=== PATIENT | male | born 1965 | race Caucasian/White ===

== ENCOUNTER 2016-12-30 08:37 | Emergency (ER) | payer BC ==
[2016-12-30] MEDS ORDERED: ONDANSETRON HCL IV 4 MG/2 ML VIAL IV ONE (08:47)
[2016-12-30] MEDS ORDERED: HYDROMORPHONE HCL 1 MG/ML CPJ IVP ONE (08:47)
[2016-12-30] MEDS ORDERED: KETOROLAC 30 MG/ML VIAL IVP ONE (08:47)
[2016-12-30] MEDS ORDERED: 0.9 % SODIUM CHLORIDE 1000ML 1,000 ML IV PRN (08:47)
--- NOTE | 2016-12-30 08:58 | Emergency Department Record ---
History of Present Illness - General Chief complaint: Flank Pain Stated complaint: FLANK PAIN Time Seen by Provider: 12/30/16 08:47 Source: Patient, RN notes reviewed Mode of Arrival: Ambulatory - Related Data Home Medications Medication Instructions Recorded Confirmed Last Taken Omeprazole 40 mg PO DAILY 12/30/16 12/30/16 1 Day Ago ~12/29/16 Previous Rx's Medication Instructions Recorded Hydrocodone/Acetaminophen [Outing 1 each PO Q4HR #30 tablet 12/30/16 5-325 Tablet] Tamsulosin HCl [Flomax] 0.4 mg PO DAILY #7 cap.er.24h 12/30/16 Allergies Allergy/AdvReac Type Severity Reaction Status Date / Time No Known Drug Allergies Allergy Verified 12/30/16 09:00 Medical Decision Making - Lab Data Result diagrams: 12/30/16 08:41 12/30/16 08:41 Disposition Clinical Impression: Kidney stone on left side, Hydronephrosis Disposition: Home, Self-Care Condition: (1) Good Instructions: Kidney Stones (ED), How to Strain Your Urine (ED), Flank Pain (ED ) Additional Instructions: follow up with family DrStephanie in [address] Enriquez follow up with urologist if fever,vomiting or severe pain. Dr. Deshpande. please give office phone number and call to set up an appointment especially if worse. strain urine Prescriptions: Hydrocodone/Acetaminophen [Outing 5-325 Tablet] 1 each PO Q4HR #30 tablet Tamsulosin HCl [Flomax] 0.4 mg PO DAILY #7 cap.er.24h Referrals: [facility] [Provider Group] JACKLYN DESHPANDE M.D. [MEDICAL DOCTOR] - Forms: Patient Portal Access
[2016-12-30 09:21] LABS: BASO % 0.3 % (0-6); EOS % 1.5 % (0-6); GRAN % 62.1 % (47-80); HEMATOCRIT 43.3 % (42.0-52.0); HEMOGLOBIN 15.4 gm/dl (14.0-18.0); LYMPH % 29.5 % (16-45); MEAN CELL VOLUME 86.8 fl (81-97); MEAN CORPUSCULAR HEMOGLOBIN 30.9 pg (27-33); MEAN CORPUSCULAR HGB CONC 35.6 g/dl (32-36); MEAN PLATELET VOLUME 10.5 fl (7.4-10.4); MONO % 6.6 % (0-9); PLATELET COUNT 336 K/uL (130-400); RED BLOOD COUNT 4.99 M/uL (4.40-5.70); RED CELL DISTRIBUTION WIDTH 12.2 % (11.5-14.5); WHITE BLOOD COUNT W/O DIFF 15.5 K/uL (4.2-12.2)
[2016-12-30 09:33] LABS: ANION GAP 12.9 (7-16); BLOOD UREA NITROGEN 13 mg/dL (9-20); CARBON DIOXIDE 27.1 mmol/L (22-30); CREATININE 0.9 mg/dL (0.66-1.25); EST GLOMERULAR FILTRATION RATE > 60 ml/min; GLUCOSE,RANDOM 134 mg/dL (70-110)
[2016-12-30 10:04] LABS: URINE APPEARANCE CLEAR; URINE BILIRUBIN NEGATIVE (NEGATIVE); URINE BLOOD MODERATE (NEGATIVE); URINE COLOR YELLOW; URINE GLUCOSE (UA) NEGATIVE (NEGATIVE); URINE KETONE NEGATIVE (NEGATIVE); URINE LEUKOCYTE ESTERASE NEGATIVE (NEGATIVE); URINE NITRITE NEGATIVE (NEGATIVE); URINE PROTEIN NEGATIVE (NEGATIVE); URINE UROBILINOGEN 0.2 E.U./dL (0.20 - 1.00)
--- NOTE | 2016-12-30 10:10 | Emergency Department Record ---
History of Present Illness - General Chief complaint: Flank Pain Stated complaint: FLANK PAIN Time Seen by Provider: 12/30/16 08:47 Source: Patient, RN notes reviewed Mode of Arrival: Ambulatory - History of Present Illness Initial comments: left flank pain and history of kidney stones and he presented with sudden flank pain at 6 pm. Onset/Timin -: Hour(s) Location: Abdomen, Left flank Severity: Moderate Severity scale (1-10): 10 Quality: Aching Consistency: Constant Improves with: None Worsens with: None - Related Data Home Medications Medication Instructions Recorded Confirmed Last Taken Omeprazole 40 mg PO DAILY 12/30/16 12/30/16 1 Day Ago ~12/29/16 Previous Rx's Medication Instructions Recorded Hydrocodone/Acetaminophen [Earp 1 each PO Q4HR #30 tablet 12/30/16 5-325 Tablet] Tamsulosin HCl [Flomax] 0.4 mg PO DAILY #7 cap.er.24h 12/30/16 Allergies Allergy/AdvReac Type Severity Reaction Status Date / Time No Known Drug Allergies Allergy Verified 12/30/16 09:00 Travel Screening - Travel/Exposure Within Last 30 Days Have you traveled within the last 30 days?: No - Travel/Exposure Within Last Year Have you traveled outside the [place] in the last year?: No - Additonal Travel Details Have you been exposed to anyone with a communicable illness?: No - Travel Symptoms Symptom Screening: None Review of Systems Reviewed: No additional complaints except as noted below Constitutional: Reports: As per HPI. Denies: Chills, Fever, Malaise, Night sweats, Weakness, Weight change Eyes: Reports: As per HPI. Denies: Eye discharge, Eye pain, Photophobia, Vision change ENT: Reports: As per HPI. Denies: Congestion, Dental pain, Ear pain, Epistaxis , Hearing loss, Throat pain Respiratory: Reports: As per HPI. Denies: Cough, Dyspnea, Hemoptysis, Stridor, Wheezes Cardiovascular: Reports: As per HPI. Denies: Arrhythmia, Chest pain, Dyspnea on exertion, Edema, Murmurs, Orthopnea, Palpitations, Paroxysmal nocturnal dyspnea, Rheumatic Fever, Syncope Endocrine: Reports: As per HPI. Denies: Fatigue, Heat or cold intolerance, Polydipsia, Polyuria Gastrointestinal: Reports: As per HPI, Abdominal pain (left lower quad pain and left flank pain). Denies: Constipation, Diarrhea, Hematemesis, Hematochezia, Melena, Nausea, Vomiting Genitourinary: Reports: As per HPI. Denies: Dysuria, Frequency, Hematuria, Incontinence, Retention, Testicular pain, Testicular mass, Urgency Musculoskeletal: Reports: As per HPI. Denies: Arthralgia, Back pain, Gout, Joint swelling, Myalgia, Neck pain Skin: Reports: As per HPI. Denies: Bruising, Change in color, Change in hair/ nails, Lesions, Pruritus, Rash Neurological: Reports: As per HPI. Denies: Abnormal gait, Confusion, Headache, Numbness, Paresthesias, Seizure, Tingling, Tremors, Vertigo, Weakness Psychiatric: Reports: As per HPI. Denies: Anxiety, Auditory hallucinations, Depression, Homicidal thoughts, Suicidal thoughts, Visual hallucinations Hematological/Lymphatic: Reports: As per HPI. Denies: Anemia, Blood Clots, Easy bleeding, Easy bruising, Swollen glands Past Medical History - SOCIAL HISTORY Smoking Status: Never smoker Alcohol Use: None Drug Use: None - RESPIRATORY Hx Respiratory Disorders: No - CARDIOVASCULAR Hx Cardio Disorders: No - NEURO Hx Neuro Disorders: No - GI Hx Reflux: Yes - Hx Kidney Stones: Yes - ENDOCRINE Hx Endocrine Disorders: No - MUSCULOSKELETAL Hx Musculoskeletal Disorders: No - PSYCH Hx Psych Problems: No - HEMATOLOGY/ONCOLOGY Hx Hematology/Oncology Disorders: No Family Medical History Any Significant Family History?: Yes Physical Exam - General General Appearance: Alert, Oriented x3, Cooperative, No acute distress - Head Head exam: Normal inspection - Eye Eye exam: Normal appearance, PERRL Pupils: Normal accommodation - ENT ENT exam: Normal exam, Mucous membranes moist, Normal external ear exam, Normal orophraynx, TM's normal bilaterally Ear exam: Normal external inspection. negative: External canal tenderness Nasal Exam: Normal inspection. negative: Discharge, Sinus tenderness Mouth exam: Normal external inspection, Tongue normal Teeth exam: Normal inspection. negative: Dental caries Throat exam: Normal inspection. negative: Tonsillar erythema, Tonsillar exudate - Neck Neck exam: Normal inspection, Full ROM. negative: Tenderness - Respiratory Respiratory exam: Normal lung sounds bilaterally. negative: Respiratory distress - Cardiovascular Cardiovascular Exam: Regular rate, Normal rhythm, Normal heart sounds - GI/Abdominal GI/Abdominal exam: Soft, Normal bowel sounds. negative: Tenderness - Rectal Rectal exam: Deferred - exam: Deferred - Extremities Extremities exam: Normal inspection, Full ROM, Normal capillary refill. negative: Tenderness - Back Back exam: Reports: Normal inspection, Full ROM. Denies: Muscle spasm, Rash noted, Tenderness - Neurological Neurological exam: Alert, Normal gait, Oriented X3, Reflexes normal - Psychiatric Psychiatric exam: Normal affect, Normal mood - Skin Skin exam: Dry, Intact, Normal color, Warm Course Vital Signs 12/30/16 08:47 Temperature 97.5 F L Pulse Rate 66 Respiratory 20 Rate Blood Pressure 143/100 Pulse Ox 100 - Reevaluation(s) Reevaluation #1: patient is feeling better. 12/30/16 11:06 12/30/16 11:10 Medical Decision Making - Data Complexity MDM Data: Labs Ordered and/or Reviewed (UA neg with rbc3-6, potassium 3.3), X- Ray Ordered and/or Reviewed (3mm kidney stone at UVJ with hydronephrosis) - Lab Data Result diagrams: 12/30/16 08:41 12/30/16 08:41 Lab Results 12/30/16 12/30/16 Range/Units 08:41 08:41 WBC 15.5 H (4.2-12.2) K/uL RBC 4.99 (4.40-5.70) M/uL Hgb 15.4 (14.0-18.0) gm/dl Hct 43.3 (42.0-52.0) % MCV 86.8 (81-97) fl MCH 30.9 (27-33) pg MCHC 35.6 (32-36) g/dl RDW 12.2 (11.5-14.5) % Plt Count 336 (130-400) K/uL MPV 10.5 H (7.4-10.4) fl Gran % 62.1 (47-80) % Lymphocytes % 29.5 (16-45) % Monocytes % 6.6 (0-9) % Eosinophils % 1.5 (0-6) % Basophils % 0.3 (0-6) % Sodium 142 (136-145) mmol/L Potassium 3.3 L (3.5-5.1) mmol/L Chloride 102 (98-107) mmol/L Carbon Dioxide 27.1 (22-30) mmol/L Anion Gap 12.9 (7-16) BUN 13 (9-20) mg/dL Creatinine 0.9 (0.66-1.25) mg/dL Estimated GFR > 60 ml/min Random Glucose 134 H (70-110) mg/dL Calcium 9.2 (8.5-10.1) mg/dL Disposition Clinical Impression: Kidney stone on left side Hydronephrosis Qualifiers: Hydronephrosis type: with ureteral calculous obstruction Qualified Code(s): N13.2 - Hydronephrosis with renal and ureteral calculous obstruction Disposition: Home, Self-Care Condition: (1) Good Instructions: Kidney Stones (ED), How to Strain Your Urine (ED), Flank Pain (ED ) Additional Instructions: follow up with family DrStephanie in [address] Enriquez follow up with urologist if fever,vomiting or severe pain. Dr. Deshpande. please give office phone number and call to set up an appointment especially if worse. strain urine Prescriptions: Hydrocodone/Acetaminophen [Earp 5-325 Tablet] 1 each PO Q4HR #30 tablet Tamsulosin HCl [Flomax] 0.4 mg PO DAILY #7 cap.er.24h Referrals: [facility] [Provider Group] JACKLYN DESHPANDE M.D. [MEDICAL DOCTOR] - Forms: Patient Portal Access Time of Disposition: 10:51
[2016-12-30 10:13] LABS: URINE EPITHELIAL CELLS NONE SEEN (FEW); URINE WBC NONE SEEN (0-2/hpf)
--- NOTE | 2016-12-30 10:37 | CT SCAN REPORT ---
EXAM: CT OF THE ABDOMEN AND PELVIS WITHOUT CONTRAST HISTORY: LEFT FLANK PAIN. TECHNIQUE: Sequential axial images were obtained from the diaphragms through the ischiorectal fossa without intravenous or oral contrast administration. FINDINGS: There is a 3 mm obstructing calculus at the left ureteral vesicular junction. This produces mild left hydronephrosis. There are additional small nonobstructing calculi in both kidneys. The nonopacified liver appears normal. There is fatty infiltration. There is focal sparing surrounding the gallbladder fossa. No gallstones or ductal dilatation. The pancreas and spleen appear normal. The adrenal glands appear normal. The small bowel appears normal. The appendix appears normal in size. There is an appendicolith distally. The urinary bladder appears normal. The colon appears grossly unremarkable. There is an incomplete descended testicle in the left inguinal canal. The osseous structures are normal. IMPRESSION: 1. 3 MM OBSTRUCTING CALCULUS AT THE LEFT URETERAL VESICULAR JUNCTION. THIS PRODUCES MILD LEFT HYDRONEPHROSIS. THERE ARE SEVERAL NONOBSTRUCTING CALCULI IN BOTH KIDNEYS. 2. INCOMPLETE DESCENDED LEFT TESTICLE IN THE INGUINAL CANAL. 3. FATTY INFILTRATION OF THE LIVER WITH FOCAL SPARING SURROUNDING THE GALLBLADDER FOSSA. JOB NUMBER: [id number] [facility]
[2016-12-30] MEDS ORDERED: TAMSULOSIN HCL 0.4 MG CAP.ER.24H PO ONE (11:02)
== END 2016-12-30 11:38 | disposition home or self-care (01) ==
LOC: ER 08:37
DX: N13.2 Hydronephrosis with renal and ureteral calculous obstruction (principal); Z87.442 Personal history of urinary calculi
CPT/HCPCS: 99284 ×2; 96374; 96375; 85025; 80048; 81001; 74176; J1885; J2405; J1170